=== PATIENT | female | born 1940 | race Caucasian/White ===

== ENCOUNTER 2018-11-06 21:34 | Emergency (ER) | payer OTHER ==
--- NOTE | 2018-11-06 21:37 | EDPHY ---
H & P Time Seen by Provider: 11/06/18 21:36 Medical Decision Making ED Course/Re-evaluation: CHIEF COMPLAINT: Near-syncope HISTORY OF PRESENT ILLNESS: 78-year-old woman who is visiting from [place] for a wedding. She had 2 glasses of wine, 1 glass of champagne, and marijuana at double. She had a near syncopal episode and she was helped to the floor. She was awake the whole time but was not with it for a minute or 2. EMS was called. Patient has no injuries and no complaints. Patient has never used edible marijuana before. Patient is new to altitude. Patient usually does not drink this much. She is here with her daughter REVIEW OF SYSTEMS: A comprehensive 10 system review of systems is otherwise negative aside from elements mentioned in the history of present illness and medical decision making. PHYSICAL EXAM: HR, BP, O2 Sat, RR. Temp noted General Appearance: Alert, well hydrated, appropriate, and non-toxic appearing. Head: Atraumatic without scalp tenderness or obvious injury Eyes: Pupils equal, round, reactive to light and accommodation, EOMI, no trauma , no injection. Ears: Clear bilaterally, no perforation, normal landmarks Nose: Atraumatic, no rhinorrhea, clear. Throat: There is no erythema or exudates, no lesions, normal tonsils, mucus membranes moist. Neck: Supple, 2+ carotid upstroke, nontender, no lymphadenopathy. Respiratory: No retractions, no distress, no wheezes, and no accessory muscle use. Lungs are clear to auscultation bilaterally. Cardiovascular: Regular rate and rhythm, no murmurs, rubs, or gallops. Bilateral carotid, radial, dorsalis pedis, and posterior tibial pulses intact. Good capillary refill all extremities. Gastrointestinal: Abdomen is soft, nontender, non-distended, no masses, no rebound, no guarding, no peritoneal signs. Musculoskeletal: Normal active ROM of all extremities, atraumatic. Neurological: Alert, appropriate, and interactive. The patient has normal DTRs and non-focal cranial nerves, motor, sensory, and cerebellar exam. Skin: No rashes, good turgor, no nodules on palpation. Past medical history: Noncontributory Past surgical history: Noncontributory Family history: Noncontributory Social history: Visiting from [place], does not abuse tobacco drugs or alcohol DIAGNOSTICS/PROCEDURES/CRITICAL CARE TIME: EKG: The 12 lead EKG was interpreted by myself as sinus rhythm with a rate of 82. See hard copy and/or "[email or web address]" electronic copy for interpretation. Normal sinus mechanism no injuries DIFFERENTIAL DIAGNOSIS: The differential diagnosis for the patient's syncope included but was not limited to vasovagal syncope, arrhythmia, dehydration, cardiogenic causes, neurogenic causes, and blood loss. MEDICAL DECISION MAKING: The patient is a 78-year-old woman who is visiting from [place] for a wedding. She had 2 glasses of wine, 1 glass of champagne, and marijuana at double. She had a near syncopal episode. She has a normal physical exam. 2140: I interpreted patient's EKG as sinus rhythm with a rate of 82. 2149: Patient's labs reveal that the patient is dehydrated. 2158: Reassessed patient and discussed laboratory and EKG findings. I have advised her to drink more water. Return precautions provided; patient is comfortable with this plan. - Data Points Laboratory Results: 11/06/18 21:46 POC Hgb 14.3 gm/dL gm/dL (12.6-16.3) POC Hct 42 % % (38-47) POC Sodium 141 mEq/L mEq/L (135-145) POC Potassium 3.5 mEq/L mEq/L (3.3-5.0) POC Chloride 103 mEq/L mEq/L (97-110) POC Total CO2 24 mEq/L mEq/L (22-31) POC BUN 36 mg/dL H mg/dL (7-23) POC Creatinine 1.0 mg/dL mg/dL (0.6-1.0) POC Glucose 120 mg/dL H mg/dL (70-100) Point of Care Test Results: Chemistry 11/06/18 21:46 POC Sodium 141 mEq/L mEq/L (135-145) POC Potassium 3.5 mEq/L mEq/L (3.3-5.0) POC Chloride 103 mEq/L mEq/L (97-110) POC Total CO2 24 mEq/L mEq/L (22-31) POC BUN 36 mg/dL H mg/dL (7-23) POC Creatinine 1.0 mg/dL mg/dL (0.6-1.0) POC Glucose 120 mg/dL H mg/dL (70-100) ISTAT H&H 11/06/18 21:46 POC Hgb 14.3 gm/dL gm/dL (12.6-16.3) POC Hct 42 % % (38-47) Departure - Departure Disposition: Home, Routine, Self-Care Clinical Impression: Dehydration Syncope Qualifiers: Syncope type: vasovagal syncope Qualified Code(s): R55 - Syncope and collapse Condition: Good Instructions: Dehydration (ED), Syncope (ED), Near Syncope (ED) Additional Instructions: 1. Drink plenty of water. 2. Follow-up with your primary doctor within 72 hours. 3. Return to the Emergency Department for fever, chest pain, shortness of breath , increasing pain or other worsening of condition. Referrals: [facility],. [Clinic] - As per Instructions
[2018-11-06 22:12] VITALS: BP 124/80
--- NOTE | 2018-11-08 14:46 | CPEKG ---
Test Reason : OPEN Blood Pressure : / mmHG Vent. Rate : 082 BPM Atrial Rate : 082 BPM P-R Int : 142 ms QRS Dur : 090 ms QT Int : 375 ms P-R-T Axes : 051 014 054 degrees QTc Int : 438 ms Sinus rhythm Confirmed by Juwan Maria ([id number]) on 11/08/2018 2:46:43 PM Referred By: Juwan Maria Confirmed By:Juwan Maria
== END 2018-11-06 22:11 | disposition home or self-care (01) ==
DX: R55 Syncope and collapse (principal); E86.0 Dehydration
CPT/HCPCS: 82435-PO; 82565-PO; 82947-PO; 84132-PO; 84295-PO; 84520-PO; 85014-ER